=== PATIENT | male | born 1950 | race Caucasian/White ===

== ENCOUNTER → 2023-09-05 08:16 | Outpatient (REF) | payer BC, SELFPAY | LOC: RCS 08:16 | PROVIDERS: ATTENDING PHYSICIAN Student in an Organized Health Care Education/Training Program | DX: R06.09 Other forms of dyspnea (principal) | CPT/HCPCS: 93017; 93350 ==

== ENCOUNTER → 2024-09-04 11:08 | Outpatient (REF) | payer BC, MEDICARE, SELFPAY | LOC: HWRCS 11:08 | PROVIDERS: ATTENDING PHYSICIAN Student in an Organized Health Care Education/Training Program | DX: R07.9 Chest pain, unspecified (principal) | CPT/HCPCS: 93306 ==

== ENCOUNTER → 2024-09-10 07:13 | Outpatient (REF) | payer BC, MEDICARE, SELFPAY | LOC: HWRCS 07:13 | PROVIDERS: ATTENDING PHYSICIAN Student in an Organized Health Care Education/Training Program | DX: R07.9 Chest pain, unspecified (principal) | CPT/HCPCS: 78452; 93017; A9500; J2785 ==